=== PATIENT | female | born 1955 | race Two or more races ===

== ENCOUNTER 2023-04-07 19:26 | Emergency (ER) | payer OTHER ==
[~2023-04-07] VITALS: Ht 165.1 cm; Wt 69.4 kg
[2023-04-07 20:58] LABS: HEMATOCRIT 44.3 % (36.0-45.00); HEMOGLOBIN 15.6 g/dL (12.0-15.00); MEAN CELL VOLUME 88.2 fL (80.00-100.00); MEAN CORPUSCULAR HEMOGLOBIN 31.1 pg (27.00-32.0); MEAN CORPUSCULAR HGB CONC 35.3 g/dl (32.0-36.0); PLATELET COUNT 215 K/uL (150-450); RED BLOOD COUNT 5.02 M/uL (4.00-6.00); RED CELL DISTRIBUTION WIDTH 13.7 % (11.5-14.5)
[2023-04-07 21:21] LABS: CALCIUM 9.3 mg/dL (8.5-10.1); CREATININE SERUM 1.07 mg/dL (0.55-1.02); GFR 51.46; POTASSIUM 3.64 mEq/L (3.5-5.1)
[2023-04-07 23:45] LABS: PH,URINE 5.5 (5.0-8.0); URINE APPEARANCE Clear; URINE BILIRRUBIN Negative (NEGATIVE); URINE BLOOD Negative; URINE COLOR Dark Yellow; URINE GLUCOSE Negative (NEGATIVE); URINE LEUKOCYTE Trace; URINE NITRATE Negative; URINE PROTEIN Trace (NEGATIVE)
[2023-04-07 23:48] LABS: URINE BACTERIA 802.4 uL (0.0-1933); URINE EPITHELIAL CELLS 7.7 uL (0.0-38.8); URINE RBC 9.4 uL (0.0-20.8); URINE WBC 5.2 uL (0.0-23.2)
[2023-04-08] MEDS ORDERED: ONDANSETRON HCL4 MG PO (00:03)
[2023-04-08] MEDS ORDERED: INTESTINEX680 M1 PO (00:03)
[2023-04-08] MEDS ORDERED: PEPCID AC20 MG PO (00:03)
[2023-04-08] MEDS ORDERED: DICY20TA PO (00:03)
== END 2023-04-08 00:09 ==
LOC: ER 19:26
PROVIDERS: Nurse Practitioner Family
DX: R10.9 Unspecified abdominal pain (principal); K58.8 Other irritable bowel syndrome; A08.4 Viral intestinal infection, unspecified